=== PATIENT | male | born 1960 | race Caucasian/White ===

== ENCOUNTER 2022-06-14 11:10 | Emergency (ER) | payer OTHER, SELFPAY ==
--- NOTE | ~2022-06-14 | XR_ITS ---
EXAMINATION: XR chest 2V DATE: 06/14/2022 11:58 INDICATION: Cough. TECHNIQUE: Frontal and lateral views of the chest were obtained on 3 radiographs. COMPARISON: None. FINDINGS: There is mild scarring at the lung apices. There is a small left pleural effusion. No pneum onia or pneumothorax. The heart size is normal. There are surgical clips in the area of the stomach. IMPRESSION: 1. Small left pleural effusion. Reviewed, dictated and finalized at location A. [employer]ER
[2022-06-14 11:21] VITALS: BP 130/80; PULSE 90; RESP 18; TEMP 36.8; O2SAT 99
--- NOTE | 2022-06-14 14:18 | ED.GENADULT ---
HPI - General Adult General Chief complaint: Upper Respiratory Infection Stated complaint: cough- flu postitive on 06/08 Time Seen by Provider: 06/14/22 14:09 History of Present Illness HPI narrative: Patient is a 62-year-old male who presents ER with cough. Reports its been persistent for 2 weeks. Was diagnosed with flu on 06/08/2022. He has completed a course of methylprednisolone, Tamiflu, and doxycycline. He has not been using his inhaler. No exertional dyspnea. No chest pain or chest pressure. He will occasionally get some dry heaves. Review of Systems Review of Systems: All systems reviewed & are unremarkable except as noted in HPI and below Constitutional: Constitutional: Denies chills and Denies fever(s) ENT: Denies nasal congestion and Denies sore throat Cardiovascular: Cardiovascular: Denies chest pain, Denies rapid heart rate and Denies radiating jaw, neck or arm pain Respiratory: Respiratory: Reports chest congestion, Reports cough, Denies dyspnea and Denies wheezing Gastrointestinal: Gastrointestinal: Denies abdominal pain, Denies nausea and Denies vomiting Exam Narrative: GENERAL: Well-appearing, well-nourished, and in no acute distress. HEAD: Normocephalic, atraumatic. ENT: Mucous membranes moist. CHEST: Coarse basilar lung sounds that clear with coughing. No respiratory distress. HEART: Regular rate and rhythm. Normal peripheral pulses. ABDOMEN: Soft, nontender, nondistended. EXTREMITIES: Normal range of motion. No edema. SKIN: Warm, dry, no rash. NEURO: Alert and oriented x3. PSYCH: Normal mood and affect. Course Course Emergency Course: Patient informed of results. Discussed he should be using his home albuterol and will likely help him with breathing and clearing his chest. Also would recommend an [id number] expectorant. Vital Signs Vital signs: Vital Signs Temperature 98.2 F 06/14/22 11:21 Pulse Rate 90 06/14/22 11:21 Respiratory Rate 18 06/14/22 11:21 Blood Pressure 130/80 06/14/22 11:21 Pulse Oximetry 99 06/14/22 11:21 Oxygen Delivery Room Air 06/14/22 11:21 Temperature 98.2 F 06/14/22 11:21 Pulse Rate 90 06/14/22 11:21 Respiratory Rate 18 06/14/22 11:21 Blood Pressure 130/80 06/14/22 11:21 Pulse Oximetry 99 06/14/22 11:21 Oxygen Delivery Room Air 06/14/22 11:21 Medical Decision Making Vital Signs Vital Signs: Vital Signs Temperature 98.2 F 06/14/22 11:21 Pulse Rate 90 06/14/22 11:21 Respiratory Rate 18 06/14/22 11:21 Blood Pressure 130/80 06/14/22 11:21 Pulse Oximetry 99 06/14/22 11:21 Oxygen Delivery Room Air 06/14/22 11:21 Temperature 98.2 F 06/14/22 11:21 Pulse Rate 90 06/14/22 11:21 Respiratory Rate 18 06/14/22 11:21 Blood Pressure 130/80 06/14/22 11:21 Pulse Oximetry 99 06/14/22 11:21 Oxygen Delivery Room Air 06/14/22 11:21 Imaging Data Radiologist's impression: ITS Impressions Chest X-Ray 06/14/22 12:02 IMPRESSION: 1. Small left pleural effusion. Discharge Plan Discharge Clinical Impression: Chest congestion Patient Disposition: Home, Self-Care Condition: Stable Instructions: Viral Syndrome (ED) Additional Instructions: It is recommended that you use your albuterol every 6 hours to help with lung recruitment and a more productive cough. You should also purchase guaifenesin to help as an expectorant. Return to the ER if you have chest pain with exertion, you lose consciousness, you have additional concerns. Prescriptions: New guaifenesin 400 mg tablet 400 mg PO QID PRN (Reason: congestion) Qty: 20 0RF Follow-up/Referrals: Akanksha Wilson DO [Physician] - 1 Week PHYSICIAN,ARMORER TECHNICIAN [Non-Staff] -
[2022-06-14 14:57] VITALS: BP 122/68; PULSE 78; RESP 18; O2SAT 99
== END 2022-06-14 14:58 | disposition home or self-care (01) ==
PROVIDERS: Emergency Provider Emergency Medicine
DX: R09.89 Other specified symptoms and signs involving the circulatory and respiratory systems (principal)
CPT/HCPCS: 71046; 99283

== ENCOUNTER 2022-12-04 18:28 | Inpatient (IN) | payer OTHER, SELFPAY ==
--- NOTE | ~2022-12-04 | CT_ITS ---
EXAMINATION: CT abdomen pelvis w con DATE: 12/04/2022 20:56 INDICATION: abd pain, distension TECHNIQUE: Computed tomography (CT) of the abdomen and pelvis was performed with 100 mL Omnipaque-350 intravenous contrast. Automated exposure control and iterative reconstruction technique were employe d. The dose-length product was 246.16 mGy-cm. COMPARISON: None. FINDINGS: Lower thorax: Left posterior diaphragmatic hernia. Bibasilar scar. Liver: Normal. Biliary/Gallbladder: Gallbladder is normal. No bile duct dilation. Pancreas: No mass or duct dilation. Spleen: Normal. Adrenals:No mass. Kidneys: Multiple bilateral hypodensities, too small to characterize. Multiple large simple right mary al cysts. Parapelvic cysts on the left. GI tract: Surgery at the GE junction. Distended stomach. Multiple loops of severely dilated small bow el, with few if any decompressed small bowel loops present. No transition point. No pneumatosis or po rtal venous gas. No interloop fluid. Disorganized bowel anatomy likely postsurgical, perhaps prior pa rtial colectomy. Appendix not visualized Mesentery/Peritoneum: Trace ascites. No mass or free air. Retroperitoneum: No mass. Atherosclerotic abdominal aortic and/or arterial calcifications. Pelvis: Pelvic organs are within normal limits. Soft Tissues: Soft tissues and body wall unremarkable. Bones: No acute osseous finding. IMPRESSION: Diffuse small bowel dilation, likely secondary obstruction. A specific transition point is not identi fied. No CT evidence of bowel wall ischemia/necrosis. Reviewed, dictated and finalized at location K. IMPRESSION: Diffuse small bowel dilation, likely secondary obstruction. A specific transiti on point is not identified. No CT evidence of bowel wall ischemia/necrosis.
--- NOTE | ~2022-12-04 | XR_ITS ---
EXAMINATION: XR abdomen NG/feed tube rechec DATE: 12/04/2022 23:56 INDICATION: Nasogastric tube advancement. TECHNIQUE: An upright view of the abdomen was obtained. COMPARISON: Abdomen radiograph 12/04/2022, CT abdomen and pelvis 12/04/2022 FINDINGS: The lower abdomen is excluded. There are dilated loops of small bowel. The nasogastric tube tip is in the stomach. There are surgical clips in the left upper quadrant. IMPRESSION: 1. Nasogastric tube tip in the stomach. 2. Persistently dilated small bowel, consistent with small bowel obstruction. Reviewed, dictated and finalized at location A.
--- NOTE | ~2022-12-04 | XR_ITS ---
EXAM: XR abdomen NG/feed tube insert DATE: 12/04/2022 22:08 HISTORY: sbo . COMPARISON: CT abdomen and pelvis, same date. FINDINGS: Left diaphragmatic hernia. NG tube tip terminates in the stomach, side port over the GE ju nction. Gastric and small bowel dilation. No organomegaly. No abnormal abdominal calcification. Regio nal bones and soft tissues normal for age. Contrast within the collecting systems. IMPRESSION: Shallow NG tube, consider advancing 5 cm. Gastric and small bowel dilation. Reviewed, dictated and finalized at location K. IMPRESSION: Shallow NG tube, consider advancing 5 cm. Gastric and small bowel d ilation.
--- NOTE | 2022-12-04 20:04 | ED.ABDPAIN ---
HPI - Abdominal Pain General Chief Complaint: Abdominal Pain Time Seen by Provider: 12/04/22 20:03 Source: patient Mode of arrival: ambulatory Limitations: no limitations History of Present Illness HPI narrative: Patient is a 62-year-old male with a history of congenital diaphragmatic hernia, small bowel obstruction, presenting to the emergency department for evaluation of abdominal pain. Patient reports acute onset right lower quadrant abdominal pain this morning. Rated as aching in nature, constant, no sharp or ripping sensation. Patient reports associated mild distention. He reports nausea without vomiting. He denies fever or chills. No upper abdominal pain, chest pain or shortness of breath. Patient denies flank pain. No dysuria or hematuria. Patient has been able to tolerate small amount of liquids today, reports decreased appetite secondary to the pain. He denies diarrhea or loose stools, does report constipation with bowel movement earlier today. Patient reports history of small bowel obstruction in the past, perhaps greater than 10 years ago. Denies recent surgery. Related Data Allergies Allergy/AdvReac Type Severity Reaction Status Date / Time Penicillins Allergy Unknown Verified 12/04/22 20:12 Review of Systems Review of Systems: CONSTITUTIONAL: Denies fever, chills, or sweats. EYES: Denies visual changes, redness, or discharge. ENT: Denies rhinorrhea, congestion, sore throat, or otalgia. CARDIOVASCULAR: Denies chest pain, palpitations, or edema. RESPIRATORY: Denies cough or dyspnea. GASTROINTESTINAL: Reports abdominal pain, nausea, denies vomiting or diarrhea, reports mild constipation GENITOURINARY: Denies dysuria or hematuria. SKIN: Denies rash or itching. MUSCULOSKELETAL: Denies back pain, joint pain, or myalgia. NEUROLOGIC: Denies headache, numbness, or weakness. [facility] Past Medical History Medical History (Updated 12/04/22 @ 21:22 by Brynn Wolff MD) Diaphragmatic hernia Small bowel obstruction Surgical History Surgical History (Updated 12/04/22 @ 20:30 by Brynn Wolff MD) H/O hernia repair Social History Social History (Updated 12/04/22 @ 20:31 by Brynn Wolff MD) Alcohol intake: never Substance use: never Lack of Transportation: No Living arrangements: with family Exam Narrative: GENERAL: Awake, alert, conversant HEAD: Normocephalic, atraumatic. EYES: PERRLA and EOMI. ENT: Nares clear, no rhinorrhea or epistaxis. Mucous membranes moist. NECK: Supple. CHEST: No respiratory distress, breathing even and non labored HEART: Regular rate, sinus rhythm ABDOMEN: Very minimal protuberance, no significant distention, tender in the right lower quadrant without rebound, rigidity or guarding, negative psoas sign, positive McBurney's point tenderness, negative Arias sign, no right upper quadrant tenderness, epigastric or left upper quadrant tenderness EXTREMITIES: Normal range of motion. No edema. SKIN: Warm, dry, no rash. NEURO:No focal deficits. Alert and oriented x3 Course Vital Signs Vital signs: Vital Signs Pulse Rate 82 12/04/22 20:11 Respiratory Rate 16 12/04/22 20:11 Blood Pressure 140/73 12/04/22 20:11 Pulse Oximetry 97 12/04/22 20:11 Pulse Rate 82 12/04/22 20:11 Respiratory Rate 16 12/04/22 20:11 Blood Pressure 140/73 12/04/22 20:11 Pulse Oximetry 97 12/04/22 20:11 MDM - Abdominal Pain MDM Narrative Medical decision making narrative: Patient presenting for evaluation of lower abdominal pain, mild distention. Normal active bowel sounds on exam. There is tenderness in the right lower quadrant without rebound, rigidity or guarding. IV access obtained and labs were drawn. Patient was given IV fluids, antiemetic and pain medication with good improvement in his symptoms. Patient without very significant leukocytosis, no lactic acidosis. CT scan confirms small bowel obstruction of which patient has had in
[2022-12-04 20:11] VITALS: BP 140/73; PULSE 82; RESP 16; O2SAT 97
[2022-12-04 20:23] LABS: Basophils Percent Auto 0.2 % (0.2-1.2); Eosinophils Percent Auto 0.1 % (0-4.4); Hematocrit 47.5 % (42.0-52.0); Hemoglobin 15.6 g/dL (14.0-18.0); Immature Granulocyte Absolute 0.04 K/mm3 (0.00-0.031); Immature Granulocyte Percent A 0.4 % (0-0.5); Lymphocytes Absolute Auto 0.73 K/mm3 (0.9-3.2); Mean Corpuscular HGB Conc 32.8 g/dl (32-36); Mean Corpuscular Hemoglobin 30.6 pg (26-34); Mean Corpuscular Volume 93.1 fl (80-100); Mean Platelet Volume 10.3 fl (7.4-10.4); Monocytes Absolute Auto 0.6 K/mm3 (0.1-0.6); Monocytes Percent Auto 5.7 % (2.6-8.5); Neutrophils Percent Auto 86.6 % (45.5-73.1); Platelet Count Result 206 k/mm3 (150-375); Red Cell Distribution Width 12.7 % (11.5-14.5); White Blood Count 10.4 K/mm3 (4.5-10.0)
[2022-12-04 20:34] LABS: Alanine Aminotransferase 21 U/L (6-50); Albumin Level 4.5 g/dL (3.5-5.1); Alkaline Phosphatase 92 U/L (38-126); Anion Gap 4 mmol/L (8-16); Aspartate Amino Transferase 27 U/L (17-59); Bilirubin,Total 0.7 mg/dL (0.2-1.3); Blood Urea Nitrogen 10 mg/dL (9-20); Calcium 9.7 mg/dL (8.4-10.2); Carbon Dioxide 38 mmol/L (22-30); Chloride 97 mmol/L (98-107); Estimated CRCL calculation 77 ml/min; Estimated Glomerular Filt Rate > 60; Glucose 139 mg/dL (65-110); Lipase 106 U/L (23-300); Potassium 4.2 mmol/L (3.4-5.0); Sodium 139 mmol/L (137-145)
[2022-12-04 20:58] LABS: Lactic Acid Reflex 1.2 mmol/L (0.7-2.0)
[2022-12-04] MEDS: SODIUM CHLORIDE 0.9% IV 1,000 ML 999 ML IV CONT (21:00)
[2022-12-04] MEDS: ONDANSETRON INJ 4 MG/2 ML VIAL IV PUSH (21:00)
[2022-12-04] MEDS: MORPHINE SULFATE (*CRX) 4 MG/ML INJ IV PUSH (21:00)
[2022-12-04 21:43] LABS: Appearance Urine Clear (Clear); Bacteria Urine None Seen /hpf; Bilirubin Urine Negative (Negative); Blood Urine Negative (Negative); Color Urine Dark Yellow (Yellow); Glucose Urine UA Negative (Negative); Ketones Urine Trace mg/dL (Negative); Leukocyte Esterase Ur Negative LEU/UL (Negative); Nitrate Urine Negative (Negative); Protein Urine Trace mg/dL (Negative); RBC Urine 0-2 /hpf (0-2); Specific Grav Ur 1.023 (1.001-1.035); Squamous Epithelial Cell Urine None seen /hpf (Few); WBC Urine 0-5 /hpf; pH Urine 7.5 (5.0-9.0)
[2022-12-04 21:51] LABS: Add Urine Microscopic? NO
--- NOTE | 2022-12-04 22:09 | PC.NURSE ---
NG tube 65cm at the lip and hooked up to suction after given to gaston from Dr Wolff. yellowish stomach contents noted in tube.
[2022-12-04 23:05] VITALS: BP 120/77; PULSE 95; RESP 18; TEMP 37.2; O2SAT 91
[2022-12-04] MEDS: LACTATED RINGERS 1,000 ML 125 ML IV CONT (23:43)
[2022-12-04 23:44] VITALS: BMI 18.6
--- NOTE | 2022-12-04 23:57 | ADMGEN ---
This patient, Magnus Carranza, was admitted to [facility] Room 300-01. Patient/family oriented to hospital policies and general routines including ID bracelet, bed and alarms, visiting hours, pain management, procedures, bathroom and other care routines, personal items, smoking policy, room service/diet, and visiting hours. Information on how to activate the Rapid Response Team has been discussed. Patient/Family are encouraged to report perceived risks to care and to ask questions if they do not understand what they are told or what they should do.
[2022-12-05] MEDS: MORPHINE SULFATE (*CRX) 4 MG/ML INJ IV PUSH (00:14)
[2022-12-05 06:00] VITALS: BP 120/77; PULSE 103; RESP 18; TEMP 37.1; O2SAT 92
[2022-12-05] MEDS: LACTATED RINGERS 1,000 ML 125 ML IV CONT ×2 (06:44→14:45)
[2022-12-05] MEDS: ONDANSETRON INJ 4 MG/2 ML VIAL IV PUSH (06:45)
[2022-12-05] MEDS: CITALOPRAM HYDROBROMIDE 20 MG TABLET 40 MG PO (09:51)
[2022-12-05] MEDS: LEVOTHYROXINE SODIUM INJ 100 MCG/5 ML VIAL 50 MCG IV PUSH (09:51)
--- NOTE | 2022-12-05 11:03 | PM.CNGS ---
Assessment and Plan Assessment and plan (1) SBO (small bowel obstruction): Code(s): K56.609 - Unspecified intestinal obstruction, unspecified as to partial versus complete obstruction Status: Acute Assessment and Plan: CT suggests small bowel obstruction, no transition point identified. He has a history of multiple major abdominal surgeries, making adhesions a likely cause. No peritoneal signs on exam. He is already improving with NG decompression. Will clamp his NG tube and remove later today if tolerates clamping. Continue conservative management, IV fluids and analgesics for now. If NG is removed, will start a clear liquid diet. Continue to monitor with serial abdominal exams. (2) History of major abdominal surgery: Code(s): Z98.890 - Other specified postprocedural states Status: Acute Plan I have discussed the patient's case and plan of care with Dr. Alex. History of Present Illness Consult details Consult date: 12/05/22 Reason for consult: other (Small bowel obstruction) Requesting physician: Brynn Wolff MD Narrative: This is a 62-year-old man with a history of congenital diaphragmatic hernia s/p multiple abdominal surgeries for repair, who presented to the ER with complaints of abdominal pain x 1 day. He has a history of a small bowel obstruction treated conservatively with NG decompression in 2013 treated at an outlying hospital. He denies having any issues since that hospitalization. He developed right-sided abdominal pain yesterday after waking up from sleep. He had not eaten any breakfast. He describes this as a stabbing, sharp pain. He developed nausea and dry heaving. His pain continued to worsen and he eventually went to the ER for further evaluation. Workup showed CT evidence of a possible small bowel obstruction. No definite transition point identified. WBC 10,000 and lactic acid normal. He was admitted to the Hospitalist service and our service was consulted for the small bowel obstruction. NG tube has been placed. He only had 120 cc output from the NG since 10:00 pm last night. He reports flatus this morning. Last BM was yesterday morning and normal for him. No other complaints at this time. Review of Systems Review of Systems: All systems reviewed & are unremarkable except as noted in HPI and below PMFSH Past Medical History Medical History Diaphragmatic hernia Small bowel obstruction Surgical History Surgical History (Updated 12/05/22 @ 11:13 by LEIGHANN Roberts) H/O hernia repair Bilateral inguinal hernia repair as a child History of laparotomy Multiple previous laparotomies for repair of his diaphragmatic hernia History of Francisco Javier fundoplication Social History Social History Smoking status: Former smoker Tobacco type: cigarettes Second hand tobacco smoke exposure: No Alcohol intake: never Substance use: never Substance use type: does not use Lack of Transportation: No Lack of Food: Never True Current Housing: I Have Housing Concerned About Future Housing: No Difficulty Paying Gas/Electric Bills: No Difficulty Paying for Meds: No Currently Unemployed: No Education: Associate Degree Difficulty w/ Childcare or Family Care: No Living arrangements: with family Spiritual care concerns: No Meds Home Medications and Allergies Home Medications Medication Instructions Recorded Confirmed Type citalopram 40 mg tablet 40 mg PO DAILY 12/04/22 12/04/22 History levothyroxine 100 mcg tablet 100 mcg PO DAILY 12/04/22 12/04/22 History Allergies Allergy/AdvReac Type Severity Reaction Status Date / Time Penicillins Allergy Unknown Verified 12/04/22 20:12 Vital Signs Vital Signs - 24 hr 12/04/22 20:11 12/05/22 00:20 12/04/22 23:05 Temperature 98.9 F Pulse Rate 82 95 Respiratory Rate 16 18 Blood Pressur
[2022-12-05] MEDS: ACETAMINOPHEN 500 MG TABLET 1000 MG PO (13:35)
[2022-12-05 14:00] VITALS: BP 128/90; PULSE 95; RESP 16; TEMP 37.1; O2SAT 100
--- NOTE | 2022-12-05 15:04 | PM.IMHP ---
H&P: HPI History of Present Illness Date/Time: 12/05/22 15:04 Chief Complaint: Abdominal pain Narrative: ED-HPI narrative: Patient is a 62-year-old male with a history of congenital diaphragmatic hernia, small bowel obstruction, presenting to the emergency department for evaluation of abdominal pain.? Patient reports acute onset right lower quadrant abdominal pain this morning.? Rated as aching in nature, constant, no sharp or ripping sensation.? Patient reports associated mild distention.? He reports nausea without vomiting.? He denies fever or chills.? No upper abdominal pain, chest pain or shortness of breath.? Patient denies flank pain.? No dysuria or hematuria.? Patient has been able to tolerate small amount of liquids today, reports decreased appetite secondary to the pain.? He denies diarrhea or loose stools, does report constipation with bowel movement earlier today. Patient reports history of small bowel obstruction in the past, perhaps greater than 10 years ago.? Denies recent surgery. Patient with with history of SBO and diaphragmatic hernia presented with c/o abdominal pain, Ct scan of abdomen showed diffuse small bowel dilation, likely secondary obstruction. A specific transition point is not identified. No CT evidence of bowel wall ischemia/necrosis. NG gautam was placed, this morning patient stats he is feeling little better and is passing gas, but no BM, denies any fever or chills, patient remains clinically, will continue conservative management patient will be seen surgery service further recommendation to follow. Patient is admitted as observation status Review of Systems Review of Systems: All systems reviewed & are unremarkable except as noted in HPI and below PMFSH Past Medical History Medical History Diaphragmatic hernia Small bowel obstruction Surgical History Surgical History (Updated 12/05/22 @ 11:13 by LEIGHANN Roberts) H/O hernia repair Bilateral inguinal hernia repair as a child History of laparotomy Multiple previous laparotomies for repair of his diaphragmatic hernia History of Francisco Javier fundoplication Social History Social History Smoking status: Former smoker Tobacco type: cigarettes Second hand tobacco smoke exposure: No Alcohol intake: never Substance use: never Substance use type: does not use Lack of Transportation: No Lack of Food: Never True Current Housing: I Have Housing Concerned About Future Housing: No Difficulty Paying Gas/Electric Bills: No Difficulty Paying for Meds: No Currently Unemployed: No Education: Associate Degree Difficulty w/ Childcare or Family Care: No Living arrangements: with family Spiritual care concerns: No Meds Home Medications and Allergies Home Medications Medication Instructions Recorded Confirmed Type citalopram 40 mg tablet 40 mg PO DAILY 12/04/22 12/04/22 History levothyroxine 100 mcg tablet 100 mcg PO DAILY 12/04/22 12/04/22 History Allergies Allergy/AdvReac Type Severity Reaction Status Date / Time Penicillins Allergy Unknown Verified 12/04/22 20:12 Vital Signs Vital Signs - 24 hr 12/04/22 20:11 12/05/22 00:20 12/04/22 23:05 Temperature 98.9 F Pulse Rate 82 95 Respiratory Rate 16 18 Blood Pressure 140/73 120/77 Pulse Oximetry 97 91 Oxygen Delivery Room Air 12/05/22 06:00 12/05/22 08:38 12/05/22 14:00 Temperature 98.7 F 98.7 F Pulse Rate 103 H 95 Respiratory Rate 18 16 Blood Pressure 120/77 128/90 Pulse Oximetry 92 100 Oxygen Delivery Room Air Exam Narrative: Appears under nourished Patient is comfortable, NAD HEENT: eyes are clear and none icteric NG tube in place LUNGS:CTA HEART: RR S1S2 ABD: Bowel sounds faint diffusely tender Lower extremities: no edema SKIN: nonjaundiced Neuro: grossly intact. H&P: Results Labs L
--- NOTE | 2022-12-05 16:25 | PC.NURSE ---
Pt is A&O4 male. Pt has had minimal pain presenting as a headache. Pt has participated and contributed in plan of care. Pt had NG clamped per Dr. Alex. Pt tolerated fine and NG was removed per provider order. Pt is tolerating clear liquids fine. Pt expresses no other needs at this time. Will continue to monitor pt.
[2022-12-05 20:00] VITALS: PULSE 97; RESP 18; O2SAT 90
[2022-12-05 22:00] VITALS: BP 116/77; PULSE 97; RESP 18; TEMP 36.6; O2SAT 90
[2022-12-06 05:54] VITALS: BP 114/77; PULSE 78; RESP 18; TEMP 36.1; O2SAT 92
[2022-12-06 05:57] LABS: Hematocrit 38.3 % (42.0-52.0); Hemoglobin 12.1 g/dL (14.0-18.0); Mean Corpuscular HGB Conc 31.6 g/dl (32-36); Mean Corpuscular Hemoglobin 30.4 pg (26-34); Mean Corpuscular Volume 96.2 fl (80-100); Mean Platelet Volume 10.9 fl (7.4-10.4); Platelet Count Result 153 k/mm3 (150-375); Red Blood Count 3.98 M/mm3 (4.6-6.20); Red Cell Distribution Width 13.2 % (11.5-14.5); White Blood Count 5.7 K/mm3 (4.5-10.0)
[2022-12-06] MEDS: LEVOTHYROXINE SODIUM INJ 100 MCG/5 ML VIAL 50 MCG IV PUSH (05:59)
[2022-12-06] MEDS: LACTATED RINGERS 1,000 ML 125 ML IV CONT (06:04)
[2022-12-06 06:19] LABS: Anion Gap 0 mmol/L (8-16); Blood Urea Nitrogen 12 mg/dL (9-20); Calcium 8.3 mg/dL (8.4-10.2); Carbon Dioxide 37 mmol/L (22-30); Chloride 99 mmol/L (98-107); Estimated CRCL calculation 81 ml/min; Estimated Glomerular Filt Rate > 60; Glucose 109 mg/dL (65-110); Magnesium 2.2 mg/dL (1.6-2.3); Potassium 4.4 mmol/L (3.4-5.0); Sodium 136 mmol/L (137-145)
[2022-12-06] MEDS: CITALOPRAM HYDROBROMIDE 20 MG TABLET 40 MG PO (08:59)
--- NOTE | 2022-12-06 11:19 | PM.PNGS ---
Progress Note: A&P Assessment and Plan (1) SBO (small bowel obstruction): Code(s): K56.609 - Unspecified intestinal obstruction, unspecified as to partial versus complete obstruction Status: Acute Assessment and Plan: resolved, +bowel fxn, exam benign, alfredo clears, will ADAT, ok to dc home if alfredo diet Subjective Subjective Date/Time Seen: 12/06/22 11:19 Interval history: feels much better, +bowel fxn, NG out, alfredo clears Review of Systems Review of Systems: All systems reviewed & are unremarkable except as noted in HPI and below Exam Const: General: cooperative, comfortable and no acute distress Resp: Auscultation: clear to auscultation bilaterally Cardio: Rate: regular rate Rhythm: regular rhythm GI: Inspection: normal to inspection and non-distended GI Palp: No abdominal tenderness, Yes Soft to palpation, No Tenderness to palpation present (GI), No Guarding due to palpation present (GI) and No Rigid due to palpation Objective Data Vital Signs Vital Signs: Vital Signs - 24 hr 12/05/22 14:00 12/05/22 22:00 12/05/22 20:00 Temperature 37.1 C 36.6 C Pulse Rate 95 97 97 Respiratory Rate 16 18 18 Blood Pressure 128/90 116/77 Pulse Oximetry 100 90 90 Oxygen Delivery Room Air 12/06/22 05:54 12/06/22 08:50 Temperature 36.1 C L Pulse Rate 78 Respiratory Rate 18 Blood Pressure 114/77 Pulse Oximetry 92 Oxygen Delivery Room Air Intake/Output Intake/Output: Intake & Output 12/03/22 12/04/22 12/05/22 12/06/22 23:59 23:59 23:59 23:59 Intake Total 1000 3800 200 Output Total 550 120 250 Balance 450 3680 -50 Meds/Results Medications: Active Medications Generic Name Dose Route Start Last Admin Trade Name Freq PRN Reason Stop Dose Admin Citalopram Hydrobromide 40 mg 12/05/22 09:00 12/06/22 08:59 Citalopram Hydrobromide 20 Mg Tablet PO 40 mg DAILY DARCIE Administration Lactated Ringer's 1,000 mls @ 125 mls/hr 12/04/22 21:50 12/06/22 06:04 Lr - Lactated Ringers Iv IV CONT 125 mls/hr .Q8H DARCIE Administration Levothyroxine Sodium 50 mcg 12/05/22 08:50 12/06/22 05:59 Levothyroxine Sodium Inj 100 Mcg/5 Ml Vial IV PUSH 50 mcg DAILY@0630 DARCIE Administration Morphine Sulfate 4 mg 12/04/22 21:48 12/05/22 00:14 Morphine Sulfate (*Crx) 4 Mg/Ml Inj IV PUSH 4 mg Q2H PRN Administration Pain Rated 7-10 Ondansetron HCl 4 mg 12/04/22 21:48 12/05/22 06:45 Ondansetron Inj 4 Mg/2 Ml Vial IV PUSH 4 mg Q4H PRN Administration Nausea Radiology Results: ITS Impressions Abdomen/Pelvis CT 12/04/22 21:05 IMPRESSION: Diffuse small bowel dilation, likely secondary obstruction. A specific transition point is not identified. No CT evidence of bowel wall ischemia/necrosis. Abdomen X-Ray 12/05/22 06:15 IMPRESSION: 1. Nasogastric tube tip in the stomach. 2. Persistently dilated small bowel, consistent with small bowel obstruction. Labs Labs: Laboratory Results - last 24 hr 12/06/22 05:25 WBC 5.7 RBC 3.98 L Hgb 12.1 L D Hct 38.3 L MCV 96.2 MCH 30.4 MCHC 31.6 L RDW 13.2 Plt Count 153 MPV 10.9 H Sodium 136 L Potassium 4.4 Chloride 99 Carbon Dioxide 37 H Anion Gap 0 L BUN 12 Creatinine 0.70 Estim Creat Clear Calc 81 Estimated GFR > 60 Glucose 109 Calcium 8.3 L Magnesium 2.2
--- NOTE | 2022-12-06 11:41 | PCDIET ---
Pt screened for lower BMI. Noted BMI 18.6. Pt reports he has always been about 130#, current wt is 136#. Reports good appetite, advanced to regular diet today, does not wish for any supplements. No nutrition recommendations at this time.
[2022-12-06 14:00] VITALS: BP 123/79; PULSE 78; RESP 16; TEMP 36.4; O2SAT 100
--- NOTE | 2022-12-06 14:15 | PM.DS ---
DS: Admitting Diagnosis Discharge Date 12/06/2022 Admitting Diagnosis Abdominal pain DS: Discharge Diagnosis Discharge Diagnosis (1) SBO (small bowel obstruction): Code(s): K56.609 - Unspecified intestinal obstruction, unspecified as to partial versus complete obstruction Status: Acute Assessment and Plan: ED-HPI narrative: Patient is a 62-year-old male with a history of congenital diaphragmatic hernia, small bowel obstruction, presenting to the emergency department for evaluation of abdominal pain.? Patient reports acute onset right lower quadrant abdominal pain this morning.? Rated as aching in nature, constant, no sharp or ripping sensation.? Patient reports associated mild distention.? He reports nausea without vomiting.? He denies fever or chills.? No upper abdominal pain, chest pain or shortness of breath.? Patient denies flank pain.? No dysuria or hematuria.? Patient has been able to tolerate small amount of liquids today, reports decreased appetite secondary to the pain.? He denies diarrhea or loose stools, does report constipation with bowel movement earlier today. Patient reports history of small bowel obstruction in the past, perhaps greater than 10 years ago.? Denies recent surgery. Patient with with history of SBO and diaphragmatic hernia presented with c/o abdominal pain, Ct scan of abdomen showed diffuse small bowel dilation, likely secondary obstruction. A specific transition point is not identified. No CT evidence of bowel wall ischemia/necrosis. NG gautam was placed, this morning patient stats he is feeling little better and is passing gas, but no BM, denies any fever or chills, patient remains clinically, will continue conservative management patient will be seen surgery service further recommendation to follow. (2) History of major abdominal surgery: Code(s): Z98.890 - Other specified postprocedural states Status: Acute Assessment and Plan: Most likely cause small-bowel obstruction but developed adhesion DS: Summary Hospital Course Reason for hospitalization: ED-HPI narrative: Patient is a 62-year-old male with a history of congenital diaphragmatic hernia, small bowel obstruction, presenting to the emergency department for evaluation of abdominal pain.? Patient reports acute onset right lower quadrant abdominal pain this morning.? Rated as aching in nature, constant, no sharp or ripping sensation.? Patient reports associated mild distention.? He reports nausea without vomiting.? He denies fever or chills.? No upper abdominal pain, chest pain or shortness of breath.? Patient denies flank pain.? No dysuria or hematuria.? Patient has been able to tolerate small amount of liquids today, reports decreased appetite secondary to the pain.? He denies diarrhea or loose stools, does report constipation with bowel movement earlier today. Patient reports history of small bowel obstruction in the past, perhaps greater than 10 years ago.? Denies recent surgery. Hospital Course: Patient with with history of SBO and diaphragmatic hernia presented with c/o abdominal pain, Ct scan of abdomen showed?diffuse small bowel dilation, likely secondary obstruction. A specific transition point is not identified. No CT evidence of bowel wall ischemia/necrosis. NG gautam was placed, this morning patient stats he is feeling little better and is passing gas, but no BM, denies any fever or chills, patient remains clinically, will continue conservative management patient will be seen surgery service further recommendation to follow. Today patient states is having bowel movement denies any nausea or vomiting, patient was started on clear liquid and has been able to tolerate his regular diet, seen by surgery service will discharge the patient today Time Spent with Patient Time attestation: Total time spent providing and/or coordinating discharge services: Exam Narrative: Appears under nourished Patient is comfortable,
== END 2022-12-06 15:00 | disposition home or self-care (01) | DRG 390 ==
LOC: ANHED 21:22 → ANH3MEDSUR 22:32
PROVIDERS: Admitting Provider Internal Medicine; Emergency Provider Emergency Medicine; Visit Provider Family Medicine
DX: K56.609 Unspecified intestinal obstruction, unspecified as to partial versus complete obstruction (principal)
CPT/HCPCS: 36415; 74177; 80048; 80053; 81003; 83605; 83690; 83735; 85025; 85027; 96361; 96374; 96375; 99285; A9270; G0378; J2270; J2405; J7030; J7120; Q9967